=== PATIENT | male | born 1975 | race Hispanic/Latino ===

== ENCOUNTER 2018-01-20 12:40 | Emergency (ER) | payer BC, OTHER, SELFPAY ==
[2018-01-20 13:35] LABS: BASOPHILS % (AUTO) 0.6 % (0.0-5.0); EOSINOPHILS % (AUTO) 1.3 % (0.0-8.0); HEMATOCRIT 47.5 % (42-54); LYMPHOCYTES % (AUTO) 33.6 % (21.0-51.0); MEAN CORPUSCULAR HEMOGLOBIN 29.9 pg (27.0-33.0); MEAN CORPUSCULAR HGB CONC 34.8 g/dL (32.0-36.0); MEAN CORPUSCULAR VOLUME 85.9 fL (79-99); MONOCYTES % (AUTO) 6.5 % (3.0-13.0); NUCLEATED RED BLOOD CELLS 0.1 % (0.0-0.19); PLATELET COUNT (AUTO) 301 K/uL (130-400); RED BLOOD CELL COUNT(AUTO) 5.52 MIL/uL (4.50-6.20); RED CELL DISTRIBUTION WIDTH 13.7 % (11.0-15.5); WHITE BLOOD COUNT (AUTO) 12.4 K/uL (4.8-10.8)
[2018-01-20 13:42] LABS: CREATININE 0.9 mg/dL (0.5-1.5); POTASSIUM 3.7 mmol/L (3.5-5.1)
[2018-01-20 13:56] LABS: CREATINE KINASE MB 4.2 ng/mL (0.5-3.6)
[2018-01-20 14:49] LABS: AMPHET/METH SCREEN,URINE NEGATIVE (NEGATIVE); BARBITURATE SCREEN, URINE NEGATIVE (NEGATIVE); BENZODIAZEPINES SCREEN,URINE POSITIVE (NEGATIVE); CANNABINOID SCREEN,URINE NEGATIVE (NEGATIVE); COCAINE SCREEN,URINE NEGATIVE (NEGATIVE); OPIATE SCREEN,URINE NEGATIVE (NEGATIVE); PHENCYCLIDINE SCREEN,URINE NEGATIVE (NEGATIVE)
== END 2018-01-20 14:51 | disposition home or self-care (01) ==
LOC: EDH 12:40
DX: F41.1 Generalized anxiety disorder (principal); R06.00 Dyspnea, unspecified; Z87.891 Personal history of nicotine dependence
CPT/HCPCS: 36415; 71046; 80048; 80305; 82550; 82553; 84484; 85025; 85378; 93005

== ENCOUNTER → 2019-11-19 | Outpatient (CLI) | payer BC | END | disposition home or self-care (01) | LOC: RAH 08:53 | PROVIDERS: ATTEND Physician Assistant | DX: R94.31 Abnormal electrocardiogram [ECG] [EKG] (principal); E66.9 Obesity, unspecified; R55 Syncope and collapse | CPT/HCPCS: 71046; 93306; 93356 ==

== ENCOUNTER → 2020-01-10 | Outpatient (CLI) | payer BC | END | disposition home or self-care (01) | LOC: RAH 10:06 | PROVIDERS: ATTEND Internal Medicine Gastroenterology | DX: R14.0 Abdominal distension (gaseous) (principal); R10.9 Unspecified abdominal pain | CPT/HCPCS: 78264; A9541 ==

== ENCOUNTER → 2020-01-14 | Outpatient (CLI) | payer BC | END | disposition home or self-care (01) | LOC: RAH 07:49 | PROVIDERS: ATTEND Internal Medicine | DX: K76.0 Fatty (change of) liver, not elsewhere classified (principal); R14.0 Abdominal distension (gaseous) | CPT/HCPCS: 76700 ==

== ENCOUNTER → 2020-11-02 | Outpatient (CLI) | payer BC | END | disposition home or self-care (01) | LOC: RAH 14:53 | PROVIDERS: ATTEND Family Medicine | DX: M25.511 Pain in right shoulder (principal) | CPT/HCPCS: 73030 ==